=== PATIENT | male | born 1950 | race Caucasian/White ===

== ENCOUNTER → 2017-07-27 | Outpatient (CLI) | payer MEDICARE, OTHER ==
[~2017-07-27] MED LIST: ACAR50 PO; AMLO5 PO; EZET10 PO; GEMF600 PO; HYDACE7.5 PO; INSLI100I SUBQ; INSULANI SUBQ; LEVSOD175 PO; LISI20 PO; METF500C PO; METF850 PO; PRED20 PO
== END | disposition home or self-care (01) ==
LOC: LAB SHORT 15:00 → LAB EV 15:00
DX: G89.4 Chronic pain syndrome (principal)

== ENCOUNTER 2019-01-03 09:31 | Day surgery (SDC) | payer MEDICARE, OTHER ==
[~2019-01-03] VITALS: Ht 185.4 cm; Wt 103.4 kg
[~2019-01-03 09:31] MED LIST changes: +INVOKANA300 MG PO; +LOSARTAN POTAS100 MG PO; +MICROZIDE12.5 MG PO; +Metformin HCl1000 MG PO
--- NOTE | 2019-01-03 14:26 | NUR ---
01/03/19 1426 Luana Briggs PT INTO PRE-OP AT 0940. PT REPORTED DRINKING COFFEE WITH MILK AT 0845. DR. TURCIOS, DR. LEMON, CHARGE NURSE AND DR. TRUONG NOTIFIED. DR. TRUONG EXCUSED HIMSELF FROM CASE; DR. TURCIOS STATES WILL PROCEED WITH LOCAL ONLY. PT NOTIFIED AND AGREED TO GO FORTH WITH LOCAL ONLY. PT ADMITTED. DR. LEMON DECIDED TO RESCHEDULE PATIENT FOR SAFETY, ASPIRATION PRECAUTION. IV DISCHARGED & PT ESCORTED OUT AT 1021.
== END 2019-01-03 10:21 | disposition home or self-care (01) ==
LOC: ORSCSDS 09:31
DX: G56.02 Carpal tunnel syndrome, left upper limb (principal); Z53.9 Procedure and treatment not carried out, unspecified reason; E11.9 Type 2 diabetes mellitus without complications; Z79.84 Long term (current) use of oral hypoglycemic drugs
CPT/HCPCS: 82947; J0690; J2250; J7120

== ENCOUNTER 2019-01-17 07:27 | Day surgery (SDC) | payer MEDICARE, OTHER ==
[~2019-01-17] VITALS: Ht 182.9 cm; Wt 226.2 kg
[2019-01-17] MEDS ORDERED: TRULICITY1.5 MG/0.5 (08:24)
[2019-01-17] MEDS ORDERED: TRESIBA FL100 UNIT/1 (08:24)
[2019-01-17] MEDS ORDERED: OXYC10TA19 (08:25)
--- NOTE | 2019-01-17 09:07 | NUR ---
01/17/19 0907 Eve Cedeno 0902- DR TURCIOS PRESENTED TO THE GEOVANNI-OP HOLDING AREA TO INJECT THE L WRIST WITH LIDOCAINE 2% WITH EPI 1:200,000 5CC AND MARCAINE 0.5% WITH EPI 1:200,000 5CC. PT TOLERATED INJECTION WELL AFTER VERSED 2CC IV WAS GIVEN. OXYGEN SATURATION REMAINED STABLE.
== END 2019-01-17 10:06 | disposition home or self-care (01) ==
LOC: ORSCSDS 07:27
PROVIDERS: Orthopaedic Surgery
PROC: 01N54ZZ Release Median Nerve, Percutaneous Endoscopic Approach (ICD-10-PCS; principal; 2019-01-17 08:45)
DX: G56.02 Carpal tunnel syndrome, left upper limb (principal); I10 Essential (primary) hypertension; E11.9 Type 2 diabetes mellitus without complications; G47.33 Obstructive sleep apnea (adult) (pediatric); F17.210 Nicotine dependence, cigarettes, uncomplicated; Z79.899 Other long term (current) drug therapy; Z79.4 Long term (current) use of insulin
CPT/HCPCS: 82947; J0690; J2250; J2704; J3010; J7120